=== PATIENT | male | born 1975 | race Caucasian/White ===

== ENCOUNTER 2018-10-29 10:27 | Emergency (ER) | payer OTHER ==
[~2018-10-29] VITALS: Ht 188 cm; Wt 99.8 kg
[2018-10-29] MEDS ORDERED: LISINOPRIL10 MG (10:36)
== END 2018-10-29 14:52 | disposition home or self-care (01) ==
LOC: ER 10:27 → EDSEX 10:36 → ER 14:52
DX: S00.83XA Contusion of other part of head, initial encounter (principal); Y08.89XA Assault by other specified means, initial encounter; Y93.89 Activity, other specified; Y92.488 Other paved roadways as the place of occurrence of the external cause; Y99.8 Other external cause status